=== PATIENT | female | born 1995 | race Caucasian/White ===

== ENCOUNTER 2017-05-25 16:09 | Emergency (ER) | payer BC ==
[~2017-05-25] VITALS: Ht 157.4 cm; Wt 61.2 kg
[2017-05-25 16:34] VITALS: BP 127/74
[2017-05-25] MEDS ORDERED: SERTRALINE HYD100 MG PO (16:35)
[2017-05-25] MEDS ORDERED: ROBITUSSIN DM 105 ML PO (16:54)
[2017-05-25] MEDS ORDERED: CORTISPORIN SUS10 ML OT ×2 (16:54→16:59)
[2017-05-25] MEDS ORDERED: FLONASE ALLERG9.9 ML NAS (16:54)
[2017-05-25] MEDS ORDERED: CLARITIN10 MG PO (16:54)
== END 2017-05-25 18:03 | disposition home or self-care (01) ==
LOC: ED 16:09
DX: H60.92 Unspecified otitis externa, left ear (principal); F17.200 Nicotine dependence, unspecified, uncomplicated; Z79.899 Other long term (current) drug therapy